=== PATIENT | male | born 1980 | race Two or more races ===

== ENCOUNTER 2020-05-01 13:22 | Emergency (ER) | payer OTHER ==
[~2020-05-01] VITALS: Ht 170.2 cm; Wt 117.9 kg
[2020-05-01 13:53] VITALS: BP 119/71
[2020-05-01] MEDS ORDERED: cefTRIAXone SOD 1,000 MG VL IM ONE (17:00)
== END 2020-05-01 17:49 | disposition home or self-care (01) ==
LOC: ER 13:22
DX: U07.1 COVID-19 (principal); J18.9 Pneumonia, unspecified organism
CPT/HCPCS: 36415; 71045; 87426; 96372; 99284; C9803; J0696; U0003